=== PATIENT | male | born 1945 | race Caucasian/White ===

== ENCOUNTER → 2017-10-14 | Outpatient (CLI) | payer OTHER, SELFPAY ==
[~2017-10-14] MED LIST: ADULT LOW DOSE81 MG; ALDACTONE25 MG PO; AMOXICILLIN/POTASSIU; ASPIR 8181 MG PO; B-COMPLEX-VITA1 EACH; CARVEDILOL25 MG; CELEXA20 MG PO; CELEXA40 MG; COREG25 MG PO; COUMADIN7.5 MG PO; DUONEB 2.5-0.5 M3 ML INH; FLOMAX0.4 MG PO; FOLIC ACID1 MG PO; FUROSEMIDE 40 M40 M1 PO; GLUCOPHAGE500 MG; GLUCOTROL XL5 MG PO; IBUPROFEN 200200 M1 PO; K-DUR 20 MEQ T20 MEQ; LACTULOSE20 GM/30 M PO; LISINOPRIL40 MG PO; LOPRESSOR 50 MG50 M1; METFORMIN HCL500 MG PO; MIRAPEX0.5 MG; MIRAPEX0.5 MG PO; NEBULIZER MISCELL; NEURONTIN 300300 M1 PO; NEURONTIN600 MG; NITROSTAT0.4 MG SUBLING; OMEPRAZOLE20 M2 PO; PERCOCET 10-321 EACH PO; POTASSIUM20 PO; PREDNISONE 10 M10 MG PO; PRINIVIL20 MG PO; PROAIR HFA8.5 GM PO; PULMICORT0.5 MG/22 INH; TOPROL XL100 MG PO; VENTOLIN HFA 1818 GM INH; VICODIN; VITAMIN D1000 UNI1; ZYRTEC 10 MG TA10 MG
== END ==
LOC: M.RAD 16:05
DX: M47.814 Spondylosis without myelopathy or radiculopathy, thoracic region (principal); M51.36 Other intervertebral disc degeneration, lumbar region; M12.88 Other specific arthropathies, not elsewhere classified, other specified site; M43.8X6 Other specified deforming dorsopathies, lumbar region; I70.0 Atherosclerosis of aorta

== ENCOUNTER 2020-09-10 18:12 | Inpatient (IN) | payer MEDICARE ==
[~2020-09-10] VITALS: Ht 182.9 cm; Wt 127.3 kg
[2020-09-10 18:28] VITALS: BP 98/62
[2020-09-10 18:54] LABS: ABSOLUTE EOSINOPHILS 0.2 thou/uL (0.0-0.7); ABSOLUTE LYMPHOCYTES 0.6 thou/uL (0.8-5.3); ABSOLUTE MONOCYTES 0.8 thou/uL (0.0-1.2); ABSOLUTE NEUTROPHILS 3.8 thou/uL (1.6-8.1); BASOPHILS 0.7 %; EOSINOPHILS 3.8 %; HEMOGLOBIN 11.6 gm/dL (14.0-18.0); LYMPHOCYTES 10.7 %; MCH 31.3 pg (26.0-34.0); MCHC 33.3 g/dL (28.0-37.0); MONOCYTES 14.9 %; MPV 8.4 fl. (7.2-11.1); NUCLEATED RBCS 0 /100WBC; PLATELET COUNT* 93 thou/uL (150-400); POLYS 69.9 %; RBC 3.72 mil/uL (4.50-6.00); RDW-CV 16.2 % (10.5-14.5); WBC 5.4 thou/uL (4.0-11.0)
[2020-09-10 19:00] LABS: CALCIUM 8.5 mg/dL (8.5-10.1); CREATININE 1.9 mg/dL (0.6-1.3); POTASSIUM 4.3 mmol/L (3.5-5.1)
[2020-09-10 19:02] LABS: APTT 32.8 Seconds (25.0-31.3); INR 1.2; PROTIME 12.7 Seconds (9.20-11.50)
[2020-09-10 19:11] LABS: ALBUMIN 2.9 g/dL (3.4-5.0); MAGNESIUM 2.1 mg/dL (1.8-2.4); TOTAL BILIRUBIN 1.6 mg/dL (<0.1-1.0); TOTAL PROTEIN 7.8 g/dL (6.4-8.2)
[2020-09-10 21:59] VITALS: BP 118/75
[2020-09-10 22:00] VITALS: BP 118/75
[2020-09-11] VITALS: BP 116/68
[2020-09-11 03:32] VITALS: BP 108/47
[2020-09-11 08:00] VITALS: BP 128/66
--- NOTE | 2020-09-11 10:32 | EKG ---
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[place] : 1945 Requested By: Akil Melgar Order Number: [id number] MD: Austyn White Measurements Intervals [place] Rate: 56 P: TN: QRS: 20 QRSD: 129 T: 204 QT: 502 QTc: 485 Interpretive Statements Atrial fibrillation low voltage Nonspecific intraventricular conduction delay Nonspecific T abnormalities, diffuse leads Electronically Signed On 09-11-2020 10:32:29 CDT by Austyn White [email or web address] <ELECTRONICALLY SIGNED> By: Austyn White MD, [facility] 09/11/20 1032 190 00 Austyn White MD, FAC /EPI
[2020-09-11 12:46] VITALS: BP 128/65
--- NOTE | 2020-09-11 14:09 | 2DMMODE ---
[place] [address] 2 D/M-MODE ECHOCARDIOGRAM Name: LUIS ENRIQUETY Roger Room: [address] IN .R.#: [id number] Admission: 09/10/20 Attend Phys: Thompson Gates Discharge: Date of : 41 Date of Service: 09/11/20 1409 Report #: [id number] THIS REPORT FOR: cc: Sanna Zavala Angela Jo RNP Blick, David R. MD [facility] ~ APPROVED REPORT Study performed: 09/11/2020 10:04:43 EXAM: Comprehensive 2D, Doppler, and color-flow Echocardiogram Patient Location: In-Patient Room #: 209 Status: routine BSA: 2.46 HR: 79 bpm BP: 128/66 mmHg Rhythm: Atrial Fibrillation Other Information Study Quality: Good Indications Congestive Heart Failure Atrial Fibrillation 2D Dimensions IVSd: 11.09 (7-11mm) LVOT Diam: 20.76 (18-24mm) LVDd: 52.59 mm PWd: 8.95 (7-11mm) Ascending Ao: 35.09 (22-36mm) LVDs: 35.81 (25-40mm) Aortic Root: 34.86 mm Volumes Left Atrial Volume (Systole) LA ESV Index: 52.40 mL/m2 Aortic Valve AoV Peak Marcelo.: 3.24 m/s AO Peak Gr.: 41.91 mmHg LVOT Max P.11 mmHg AO Mean Gr.: 26.94 mmHg LVOT Mean P.13 mmHg LVOT Max V: 1.24 m/s AO V2 VTI: 73.29 cm LVOT Mean V: 0.82 m/s LANI (VTI): 1.33 cm2 LVOT V1 VTI: 28.69 [place] [address] 2 D/M-MODE ECHOCARDIOGRAM Name: TY DUDLEY Room: [address] IN .R.#: [id number] Admission: 09/10/20 Attend Phys: Thompson Gates Discharge: Date of : 41 Date of Service: 09/11/20 1409 Report #: [id number] [place]: 1.64 m/s2 AI PHT: 524.24 ms Mitral Valve MV Decel. Time: 157.47 ms MV PHT: 45.67 ms MVA (PHT): 4.82 cm2 TDI Medial E' Marcelo.: 0.11 m/s Lateral E' Marcelo.: 0.14 m/s Pulmonary Valve PV Peak Marcelo.: 1.24 m/s PV Peak Gr.: 6.18 mmHg Tricuspid Valve RAP Estimate: 5.00 mmHg TR Peak Gr.: 27.02 mmHg RVSP: 32.00 mmHg PA Pressure: 32.00 mmHg Left Ventricle The left ventricle is normal size. There is normal LV segmental wall motion. There is normal left ventricular wall thickness. Left ventricular systolic function is normal. The left ventricular ejection fraction is within the normal range. LVEF is 55-60%. This study is not technically sufficient to allow evaluation of the LV diastolic function due to atrial fibrillation. Right Ventricle Right ventricle is dilated. The right ventricular systolic function is normal. Atria Left atrium is moderately dilated. Right atrium is dilated. Aortic Valve Aortic valve is calcified. Mild aortic regurgitation. Moderately severe aortic stenosis. Mitral Valve The mitral valve is normal in structure. Mild mitral regurgitation. No evidence of mitral valve stenosis. Tricuspid Valve The tricuspid valve is normal in structure. Mild tricuspid regurgitation. estimated pa pressure 40 [place] [address] 2 D/M-MODE ECHOCARDIOGRAM Name: TY DUDLEY Room: [address]#: [id number] Admission: 09/10/20 Attend Phys: Thompson Gates Discharge: Date of : 41 Date of Service: 09/11/20 1409 Report #: [id number] Pulmonic Valve The pulmonary valve is normal in structure. There is no pulmonic valvular regurgitation. Great Vessels The aortic root is normal in size. IVC is not visualized. Pericardium There is no pericardial effusion. Left pleural effusion. <Conclusion> LVEF is 55-60%. Right ventricle is dilated. Left atrium is moderately dilated. Mild aortic regurgitation. Moderately severe aortic stenosis. Mild mitral regurgitation. Mild tricuspid regurgitation. estimated pa pressure 40 mm Hg <ELECTRONICALLY SIGNED> By: Austyn White MD, FACC 09/11/20 1409 1409 1409 Austyn White MD, FACC /INF
[2020-09-11 15:39] VITALS: BP 111/58
[2020-09-11 23:31] VITALS: BP 121/62
[2020-09-12 03:35] VITALS: BP 96/48
[2020-09-12 04:42] LABS: HEMATOCRIT 30.3 % (42.0-52.0); HEMOGLOBIN 10.1 gm/dL (14.0-18.0); MCH 30.7 pg (26.0-34.0); MCHC 33.2 g/dL (28.0-37.0); MCV 92.4 fL (80.0-100.0); MPV 8.6 fl. (7.2-11.1); RBC 3.28 mil/uL (4.50-6.00); RDW-CV 16.2 % (10.5-14.5); WBC 4.6 thou/uL (4.0-11.0)
[2020-09-12 05:15] LABS: INR 1.3; PROTIME 13.5 Seconds (9.20-11.50)
[2020-09-12 05:22] LABS: ALBUMIN 2.7 g/dL (3.4-5.0); ALKALINE PHOSPHATASE 73 U/L (46-116); ANION GAP 9 mmol/L (7-16); BUN 39 mg/dL (7-18); CALCIUM 8.5 mg/dL (8.5-10.1); CHLORIDE 104 mmol/L (98-107); CHOLESTEROL 86 mg/dL (<200); CO2 26 mmol/L (21-32); GLUCOSE 137 mg/dL (70-99); HDL CHOLESTEROL 54 mg/dL (>40); LDL CHOLESTEROL 24 mg/dL (<100); POTASSIUM 4.4 mmol/L (3.5-5.1); SGOT 28 U/L (15-37); SGPT 20 U/L (30-65); SODIUM 139 mmol/L (136-145); TC:HDL 1.6 Ratio (Not establshd); TRIGLYCERIDE 42 mg/dL (<150); TROPONIN-I LEVEL 0.15 ng/mL (<0.06); VLDL 8 mg/dL (<40)
[2020-09-12 05:23] LABS: CREATININE 2.9 mg/dL (0.6-1.3)
[2020-09-12 05:24] LABS: SERUM ASSESSMENT Clear
[2020-09-12 08:00] VITALS: BP 77/41
[2020-09-12 10:41] LABS: BE -1.5 mmol/L (-2 to +3); PCO2 49.1 mmHg (35.0-45.0); PO2 80.8 mmHg (75.0-100.0); pH 7.322 (7.340-7.450)
[2020-09-12 12:00] VITALS: BP 104/62; BP 87/47
[2020-09-12 13:00] VITALS: BP 87/43
[2020-09-12 14:04] VITALS: BP 101/38
[2020-09-12 16:00] VITALS: BP 104/62
--- NOTE | 2020-09-13 13:13 | CON ---
[address] [address] CONSULTATION Name: TY DUDLEY Room: [address] IN M.R.#: [id number] Admission: 09/10/20 Attend Phys: German Bui Discharge: 09/12/20 Date of : 41 Report #: [id number] THIS REPORT FOR: cc: Sanna Zavala Angela Jo RNP Blick, David R. MD [facility] ~ DOC #: [id number] cc: CHRISTY Sahni MD [facility] DATE OF CONSULTATION: 09/11/2020 CARDIOLOGY CONSULTATION HISTORY OF PRESENT ILLNESS: The patient is a 75-year-old single white male who I was asked to see in the hospital after he fell at home. The history is obtained from the patient as no family member is available. There was some old charts available. The patient was admitted here at [facility] back in 2017 with renal insufficiency, COPD and bradycardia. He has a history of diabetes. The patient is not very active at this time and lives with his son. He uses a walker. He has had problems with balance in the past. The patient was brought to the Emergency Room last night. Apparently, he has been feeling very weak. He fell to the ground and hit his head. Ambulance was called and he was brought to [facility] and admitted. He denies recent vomiting, diarrhea or bleeding. Denies recent chest pain, increased shortness of breath. He does note occasional episodes where his heart rate will increase. He has been weak. PAST MEDICAL HISTORY: He used to work in [place], [place] and had a previous heart attack and had a stent placed at . He eventually underwent quadruple coronary artery bypass surgery at in 2008. He has a history of hypertension. CURRENT MEDICATIONS: Include Neurontin, a nebulizer, glipizide, Lasix for swelling, spironolactone, lisinopril, omeprazole, Celexa, warfarin, Flomax. ALLERGIES: He has no known drug allergies. FAMILY HISTORY: His father has heart disease. SOCIAL HISTORY: He is , lives in [place] by himself. No smoking, no alcohol abuse. REVIEW OF SYSTEMS: He denies a history of stroke. He does have asthma, uses inhaler. No history of liver disease, kidney disease, cancer or psychiatric illness. He has a history of chronic edema and has been to the [place] [address] CONSULTATION Name: TY DUDLEY Room: [address]#: [id number] Admission: 09/10/20 Attend Phys: German Bui Discharge: 09/12/20 Date of : 41 Report #: [id number] PHYSICAL EXAMINATION: GENERAL: Revealed an elderly obese white male, lying in bed. He is 6 feet tall, weight 270 pounds. VITAL SIGNS: He had a blood pressure of 120/70, pulse 60. He is afebrile. HEENT: He was anicteric. Conjunctivae pink. Mucous membranes appear dry. NECK: Veins did not appear distended. No carotid bruits. Neck is supple. CHEST: Clear to auscultation. HEART: Regular rate and rhythm without murmur or rub. ABDOMEN: Obese. EXTREMITIES: He had trace edema. No dorsalis pedis pulses could be palpated. SKIN: He has a very dry skin. IMAGING: His ECG on admission showed atrial fibrillation with a slow ventricular response rate, with pauses up to 1.4 seconds in duration. His workup in the Emergency Room yesterday, he had a chest x-ray that showed cardiomegaly, small effusions. The patient had a previous CT scan of the head back in 2017 here at [facility] that showed no acute abnormality. Echocardiogram back in 2017 showed an ejection fraction of 60% with aortic sclerosis. LABORATORY DATA: His lab work yesterday, sodium 140, BUN 25, creatinine 1.9, it was actually 3.1 back in 2017. His albumin is 2.9. Liver function studies were normal. Troponin was borderline elevated at 0.37. His TSH in 2017 was 0.7. His INR is 1.2, it was 2.7 back in 2017. His white blood cell count 5.4, hemoglobin 11.6, platelet count was only 93,000, it was 99 back in 2017. His COVID antigen stat test was negative. IMPRESSION AND RECOMMENDATION: 1. Fall. The patient complains of weakness. Possibly related to slow atrial fibrillation. Would consider placement of a pacemaker. 2. Atrial fibrillation. I would hold warfarin at this time. 3. Chronic kidney disease. 4. Chronic obstructive pulmonary disease. 5. Obesity. 6. Venous stasis. 7. Thrombocytopenia. 8. Asthma. The patient uses inhalers. 9. Diabetes. 10. Hypertension. The patient is on an ANDREW inhibitor. Austyn White MD [facility] [place] [address] CONSULTATION Name: TY DUDLEY Room: [address]#: [id number] Admission: 09/10/20 Attend Phys: German Bui Discharge: 09/12/20 Date of : 41 Report #: [id number] <ELECTRONICALLY SIGNED> By: Austyn White MD, FACC 09/13/20 1313 1026 [id number] White MD, FACC /nt
--- NOTE | 2020-09-14 10:21 | CON ---
[address] [address] CONSULTATION Name: TY DUDLEY Room: [address] IN M.R.#: [id number] Admission: 09/10/20 Attend Phys: German Bui Discharge: 09/12/20 Date of : 41 Report #: [id number] THIS REPORT FOR: cc: Sanna Zavala Angela Jo RNP Arakelov, Alexandr V. MD ~ DOC #: [id number] Christopher Pearce MD DATE OF CONSULTATION: 09/12/2020 REQUESTING PHYSICIAN: Dr. Brown. REASON FOR CONSULTATION: Acute kidney injury. HISTORY OF PRESENT ILLNESS: The patient is a 75-year-old gentleman with medical history significant for diabetes mellitus type 2, obesity, coronary artery disease, cardiomyopathy, COPD, dementia, presents with complaints of shortness of breath. He was diagnosed with COPD and CHF exacerbation. He was given some Lasix. His creatinine today is 2.9 from 1.9 yesterday. Unfortunately, became hypotensive, so Lasix stopped. His lisinopril was stopped as well and he was given a little fluid bolus to bring the blood pressure up. PAST MEDICAL HISTORY: As mentioned earlier. SOCIAL HISTORY: No tobacco, no alcohol abuse. FAMILY HISTORY: Negative for renal disease. MEDICATIONS: Reviewed. REVIEW OF SYSTEMS: Positive for weakness, chronic lower extremity edema, some shortness of breath, but states that shortness of breath is better. PHYSICAL EXAMINATION: GENERAL: Awake, alert, oriented. VITAL SIGNS: Blood pressure 77/45, afebrile. HEENT: Pupils are round. NECK: Fatty. LUNGS: Decreased air movements, but no crackles. CARDIOVASCULAR: Regular rate. ABDOMEN: Obese. EXTREMITIES: Lower extremities with chronic 2 to 3+ edema. ASSESSMENT: 1. Acute kidney injury, most likely [place] [address] CONSULTATION Name: TY DUDLEY Room: [address]#: [id number] Admission: 09/10/20 Attend Phys: German Bui Discharge: 09/12/20 Date of : 41 Report #: [id number] 2. Chronic edema. 3. Chronic obstructive pulmonary disease exacerbation. 4. Questionable congestive heart failure exacerbation. 5. Diabetes mellitus type 2. PLAN: Agree with stopping lisinopril and Lasix for now due to hypotension. I do not know what his ejection fraction on this gentleman is. Deferred to cardiology. Follow labs. Overall, prognosis is poor. ADDENDUM: Echocardiogram was done on 04/15/2017. At that time, his ejection fraction was normal and moderate aortic valve sclerosis. We will discuss with Dr. White. MD LANI Keyes/ARIANA <ELECTRONICALLY SIGNED> By: Christopher Pearce MD 09/14/20 1021 1051 [id number] Pearce MD /nt
== END 2020-09-12 19:00 | disposition short-term general hospital (02) | DRG 291 ==
LOC: M.ERS → M.TBA-ER 18:52 → M.2W 18:52
PROVIDERS: Family Medicine; Internal Medicine; ADMIT Internal Medicine; ATTEND Internal Medicine
PROC: 05HF33Z Insertion of Infusion Device into Left Cephalic Vein, Percutaneous Approach (ICD-10-PCS; 2020-09-11)
PROC: B54NZZA Ultrasonography of Left Upper Extremity Veins, Guidance (ICD-10-PCS; 2020-09-11)
PROC: 05HF33Z Insertion of Infusion Device into Left Cephalic Vein, Percutaneous Approach (ICD-10-PCS; principal; 2020-09-12)
PROC: 5A0935A Assistance with Respiratory Ventilation, Less than 24 Consecutive Hours, High Flow/Velocity Cannula (ICD-10-PCS; principal; 2020-09-12)
PROC: B54NZZA Ultrasonography of Left Upper Extremity Veins, Guidance (ICD-10-PCS; principal; 2020-09-12)
DX: I13.0 Hypertensive heart and chronic kidney disease with heart failure and stage 1 through stage 4 chronic kidney disease, or unspecified chronic kidney disease (principal); I50.33 Acute on chronic diastolic (congestive) heart failure; J96.01 Acute respiratory failure with hypoxia; J44.1 Chronic obstructive pulmonary disease with (acute) exacerbation; N17.9 Acute kidney failure, unspecified; D68.59 Other primary thrombophilia; I25.10 Atherosclerotic heart disease of native coronary artery without angina pectoris; J44.9 Chronic obstructive pulmonary disease, unspecified; S70.01XA Contusion of right hip, initial encounter; W18.39XA Other fall on same level, initial encounter; I48.91 Unspecified atrial fibrillation; F03.90 Unspecified dementia, unspecified severity, without behavioral disturbance, psychotic disturbance, mood disturbance, and anxiety; E11.22 Type 2 diabetes mellitus with diabetic chronic kidney disease; N18.9 Chronic kidney disease, unspecified; I35.0 Nonrheumatic aortic (valve) stenosis; I42.9 Cardiomyopathy, unspecified; I95.9 Hypotension, unspecified; Z20.822 Contact with and (suspected) exposure to COVID-19; Y93.89 Activity, other specified; Y92.89 Other specified places as the place of occurrence of the external cause; Y99.8 Other external cause status; Z95.1 Presence of aortocoronary bypass graft; Z79.01 Long term (current) use of anticoagulants; Z79.899 Other long term (current) drug therapy